=== PATIENT | female | born 1965 | race Asian ===

== ENCOUNTER 2022-06-05 08:54 | Outpatient (CLI) | payer MEDICAID | END 2022-06-05 23:59 | disposition home or self-care (01) | LOC: LAB 08:54 | PROVIDERS: ATTEND Surgery Vascular Surgery | DX: Z01.812 Encounter for preprocedural laboratory examination (principal); Z20.822 Contact with and (suspected) exposure to COVID-19 | CPT/HCPCS: U0003; C9803 ==

== ENCOUNTER 2022-06-09 07:06 | Day surgery (SDC) | payer MEDICAID, OTHER ==
[2022-06-09] MEDS ORDERED: LIDOCAINE HCL/MPF 1% 30 ML VIAL IJ ONE (07:25)
[2022-06-09] MEDS ORDERED: POLYMYXIN B SULFATE 500,000 UNITS ONE (07:25)
--- NOTE | 2022-06-09 07:30 | NUR ---
MS/DS NOTES - PT ARRIVED TO UNIT AT 0715 AMBULATORY WITH ASSISTANCE ACCOMPANIED BY ADMITTING STAFF FOR RIGHT UPPER EXTREMITY ARTERIOVENOUS FISTULA PLACEMENT BY DR SHAH. PT IS AOX4, ABLE TO VERBALIZE NEEDS. ORIENTED TO ROOM AND STAFF. ON ROOM AIR, TOLERATING WELL, BREATHING EVEN AND UNLABORED. PT SIGNED ALL CONSENTS FOR SURGERY AND FILED ON HER CHART. PT CONFIRMED NPO SINCE MIDNIGHT 06/09/22. SECURED STAT TEST ORDERED. SAFETY MEASURES IMPLEMENTED: BED PLACED IN LOWEST AND LOCKED POSITION WITH SIDE RAILS UP 2X, CALL LIGHT AND TRAY TABLE WITHIN EASY REACH.
[2022-06-09] MEDS ORDERED: BUPIVACAINE 0.25% 75 MG/30 ML VIAL ONE (07:31)
[2022-06-09] MEDS ORDERED: BACITRACIN ZINC OINT PACKET 1 EA PACKET TP ONE (07:32)
[2022-06-09] MEDS ORDERED: CELLULOSE,OXIDIZED 1 EACH EACH MC ONE (07:32)
--- NOTE | 2022-06-09 07:55 | NUR ---
MS/DS RN NOTES - PATIENT WAS PICKED UP BY 2 OR STAFF AT 0755 IN STABLE CONDITION. WASN'T ABLE TO START AN IV SINCE OR SAID IT WILL BE DONE IN THE OR.
[2022-06-09] MEDS ORDERED: FENTANYL PF 250MCG/5ML AMPUL ONE (09:01)
[2022-06-09] MEDS ORDERED: HEPARIN SODIUM, PORCINE 5000 UNITS/1 ML VIAL ONE ×2 (09:02)
[2022-06-09] MEDS ORDERED: protAMINE SULFATE 10 MG/ML VIAL IV ONE (09:02)
[2022-06-09] MEDS ORDERED: ONDANSETRON HCL/PF 4 MG/2 ML VIAL ONE (11:19)
[2022-06-09 11:25] VITALS: BP 117/57
[2022-06-09 11:40] VITALS: BP 118/54
--- NOTE | 2022-06-09 11:40 | NUR ---
MS/DS RN NOTES -PT BACK IN HER ROOM AT 1125, S/P LEFT UPPER EXTREMITY ARTERIOVENOUS FISTULA PLACEMENT. OPERATIVE SITE IS DRY COVERED IN GAUZE AND NO BLEEDING NOTE. IV ACCESS ON THE RIGHT HAND 20#G WITH NS KVO, PATENT FLUSHING WELL. PATIENT DENIES PAIN NOR DISCOMFORT. ON ROOM AIR WITHOUT ANY DIFFICULTY. OR NURSE SAID PATIENT HAD AN EPISODE OF N/V AND WAS GIVEN ZOFRAN. STARTED THE PATIENT ON SOFT RENAL STANDARD DIET ORDERED. PATIENT VS IS STABLE AND RECORDED, WILL MONITOR EVERY 15 MINS FOR AN HOUR.
[2022-06-09 11:55] VITALS: BP 116/60
[2022-06-09 12:10] VITALS: BP 115/62
[2022-06-09 12:25] VITALS: BP 118/62
[2022-06-09 13:00] VITALS: BP 122/64
[2022-06-09] MEDS ORDERED: ANESTHESIA TRAY IN PYXIS 1 EA TRAY MC ONE (14:50)
--- NOTE | 2022-06-09 15:34 | NUR ---
DS/MS DIRECTOR HEMATOLOGY NOTE PT DISCHARGED TO HOME IN STABLE CONDITION. PT AOX4, ABLE TO VERBALIZED NEEDS. ON ROOM AIR WITHOUT DIFFICULTY. NOT IN ANY FORM OF DISTRESS. S/P L AV FISTULA PLACEMENT - DRESSING C/D/I. DENIES PAIN NOR DISCOMFORT AT THE MOMENT. VS TAKEN, STABLE, RECORDED. DISCHARGE INSTRUCTIONS GIVEN TO PATIENT INCLUDING HEALTH TEACHINGS GIVEN REGARDING AV FISTULA AFTER CARE AND FOLLOW UP VISIT WITH DR SHAH. BELONGINGS ACCOUNTED FOR, FORM SIGNED. IV ACCESS R HAND REMOVED, PRESSURE DRESSING APPLIED, NO BLEEDING NOTED. PATIENT ALSO HAS INTACT RC[facility] PERMACATH - DRESSING C/D/I. PT LEFT THE UNIT AT 1530 AMBULATORY WITH WALKER. ACCOMPANIED TO THE LOBBY, PICKED UP BY FRIEND THAO. FERNANDEZ AND CHARGE NURSE AWARE OF THE DISCHARGE.
== END 2022-06-09 15:30 | disposition home or self-care (01) ==
LOC: DS 07:06 → MED 07:07 → UNDOADMIN 07:07 → DS 15:30 → UNDODISIN 15:30
PROVIDERS: ATTEND Surgery Vascular Surgery
DX: I12.0 Hypertensive chronic kidney disease with stage 5 chronic kidney disease or end stage renal disease (principal); N18.6 End stage renal disease; Z99.2 Dependence on renal dialysis; Z20.822 Contact with and (suspected) exposure to COVID-19; Z98.890 Other specified postprocedural states; Z79.899 Other long term (current) drug therapy
CPT/HCPCS: 36821; 84703; 93005; J0690; J2704; J1644 ×4; J2720; J2405; J7030; J3490 ×2; J3010; C1769; G0378

== ENCOUNTER 2022-08-11 14:04 | Outpatient (CLI) | payer MEDICARE, OTHER | END 2022-08-11 23:50 | disposition home or self-care (01) | LOC: LAB 14:04 | PROVIDERS: ATTEND Surgery Vascular Surgery | DX: Z01.812 Encounter for preprocedural laboratory examination (principal); Z20.822 Contact with and (suspected) exposure to COVID-19 | CPT/HCPCS: U0003; C9803 ==

== ENCOUNTER 2022-08-16 09:50 | Day surgery (SDC) | payer MEDICARE, OTHER ==
[2022-08-16] MEDS ORDERED: IOHEXOL 0 ML IV ONE (10:24)
[2022-08-16] MEDS ORDERED: CELLULOSE,OXIDIZED 1 EA PACK MC ONE (10:24)
[2022-08-16] MEDS ORDERED: LIDOCAINE HCL/MPF 1% 30 ML VIAL IJ ONE (10:25)
[2022-08-16] MEDS ORDERED: BUPIVACAINE 0.5 % PF 150 MG/30 ML VIAL ONE (10:25)
[2022-08-16] MEDS ORDERED: FENTANYL PF 100MCG/2ML AMPUL ONE (11:33)
[2022-08-16] MEDS ORDERED: MIDAZOLAM HCL 2 MG/2ML VIAL ONE (11:33)
[2022-08-16] MEDS ORDERED: FAMOTIDINE/PF INJ 20 MG/2 ML VIAL IV ONE (11:34)
[2022-08-16 11:39] LABS: BASOPHILS % (AUTO) 0.7 % (0.0-2.0); EOSINOPHILS % (AUTO) 6.3 % (0.0-6.0); HEMATOCRIT 36 % (33-45); HEMOGLOBIN 11.2 g/dL (11.5-14.8); LYMPHOCYTES # (AUTO) 2.2 K/uL (0.8-4.8); LYMPHOCYTES % (AUTO) 34.8 % (20.0-44.0); MEAN CORPUSCULAR HGB CONC 31 g/dl (31.0-36.0); MEAN CORPUSCULAR VOLUME 88 fL (82-100); MONOCYTES # (AUTO) 0.7 K/uL (0.1-1.30); MONOCYTES % (AUTO) 11.3 % (2.0-12.0); NEUTROPHILS % (AUTO) 46.9 % (43.0-81.0); PLATELET COUNT (AUTO) 206 K/uL (150-450); RED BLOOD CELL COUNT(AUTO) 4.07 MIL/uL (4.0-5.2); WHITE BLOOD COUNT (AUTO) 6.5 K/uL (4.3-11.0)
[2022-08-16 11:47] LABS: CALCIUM, SERUM 9.1 mg/dL (8.5-10.1); CREATININE 6.6 mg/dL (0.6-1.3); POTASSIUM 4.3 mmol/L (3.5-5.1)
--- NOTE | 2022-08-16 15:30 | NUR ---
RN NOTE RECEIVED PATIENT FROM PACU, S/P LEFT UPPER ARM AV GRAFT PLACEMENT BY DR. SHAH, FOR OBSERVATION PRIOR DISCHARGE. PATIENT WHEELED VIA BED ACCOMPANIED BY ZAHRAA GRACE. PATIENT IS AWAKE, A/O X4, VERBALLY RESPONSIVE AND ABLE TO MAKE NEEDS KNOWN. NOTED WITH DRESSING ON LEFT UPPER ARM WITH MELODY DRAIN TO BULB WITH SANGUINEOUS OUTPUT. VITAL SIGNS TAKEN WITHIN NORMAL LIMITS. ORIENTED TO ROOM AND STAFF. SAFETY MEASURE IN PLACE. BED IN LOW AND LOCKED POSITION, SIDE RAILS UP X2, CALL LIGHT AND TABLE PLACED WITHIN EASY REACH. WILL CONTINUE TO MONITOR PATIENT. ORDERS FROM DR. SHAH CARRIED OUT. Addendum: 08/16/22 at 1602 by KADY FAUST RN Vital Signs as follows: B/P - 130/70, T- 97.4, P - 81, R - 19, PA 06/09
--- NOTE | 2022-08-16 15:45 | NUR ---
VITAL SIGNS: B/P - 125/64, P - 79, R- 19, T- 97.4, PA 2/10
--- NOTE | 2022-08-16 16:00 | NUR ---
VITAL SIGNS: B/P - 130/70, P - 81, R- 19, T- 97.4, PA 2/10
--- NOTE | 2022-08-16 16:15 | NUR ---
VITAL SIGNS: B/P - 123/62, P - 69, R- 19, T- 97.4, PA 2/10
[2022-08-16] MEDS ORDERED: ANESTHESIA TRAY IN PYXIS 1 EA TRAY MC ONE (16:57)
--- NOTE | 2022-08-16 17:49 | NUR ---
TECHNOLOGY SALES REPRESENTATIVE NOTE PATIENT DISCHARGED HOME IN STABLE CONDITION. S/P LEFT UPPER ARM AV GRAFT PLACEMENT. SITE WITH DRESSING C/D/I WITH MELODY DRAIN TO BULB, DRAINED 12.5 CC OF SANGUINEOUS OUTPUT. DISCHARGE INSTRUCTIONS PROVIDED, PATIENT TO FOLLOW-UP TO [facility] TOMORROW TO D/C MELODY DRAIN. PATIENT VERBALIZED UNDERSTANDING. ACCOMPANIED PATIENT TO THE LOBBY VIA W/C. PICKED UP BY FRIEND ISRAEL VIA PRIVATE CAR. CN AWARE OF DISCHARGE.
== END 2022-08-16 18:00 | disposition home or self-care (01) ==
LOC: DS 09:50 → UNDOADMIN 12:44 → MED 12:44 → UNDODISIN 17:45 → DS 18:00
PROVIDERS: ATTEND Surgery Vascular Surgery
DX: I12.0 Hypertensive chronic kidney disease with stage 5 chronic kidney disease or end stage renal disease (principal); N18.6 End stage renal disease; D63.1 Anemia in chronic kidney disease
CPT/HCPCS: 36819; 71045; 93005; 85025; 80048; 84703; 36415; J3490 ×3; J1100; J2704; J3010; J2765; J2405; C1729; J1644; J7040; A6209 ×2; G0378; J2250; Q9967